=== PATIENT | male | born 1990 | race Caucasian/White ===

== ENCOUNTER 2024-06-29 09:25 | Emergency (ER) | payer BC, SELFPAY ==
[2024-06-29 09:38] VITALS: BP 124/93
--- NOTE | 2024-06-29 10:32 | ED.GENMED ---
History of Present Illness
General
Chief Complaint: Skin Problem
Time Seen by Provider: 06/29/24 10:04
History of Present Illness
History of Present Illness:
Patient is a 34-year-old man is otherwise healthy presenting to the emergency department with a rash. Patient states that 5 days ago he visited daycare for his 3-month-old son. 3 days ago he developed generalized fatigue and overall drowsiness. 2
days ago he developed a rash to his hands and that spread to his mouth and feet. He states that they are painful as well as itchy. He thought that it was allergies so he took Indira as well as Advil. No new detergents food medications. He is
not allergic to anything. His son has otherwise been healthy. It is not a burning sensation. He is only sexually active with his . He denies any fevers chills neck pain numbness tingling or weakness. He has been tolerating p.o. No changes
in his voice. He does note that he shaved yesterday and noticed some yellow crusting around the lesions around his mouth
Phy Exam
Physical Exam
Physical Exam:
GENERAL: in no acute distress
HEENT: normocephalic, extraocular movements intact, moist oral mucosa
NECK: normal inspection
RESPIRATORY: no respiratory distress, clear to auscultation bilaterally
CARDIOVASCULAR: regular rate and rhythm
ABDOMEN/: soft, non-distended, non-tender to palpation, no rebound or guarding
EXTREMITIES: non-tender, no edema/swelling
NEUROLOGIC: awake and alert, moves all extremities
SKIN: warm, bilateral hands tongue and perioral rash erythematous papular vesicle lesion with surrounding erythema, no areas of necrosis, no desquamation, some yellow crusting around perioral lesions
Course
Vital Signs
Initial and Last Documented VS:
Initial Vital Signs
Temp Pulse Resp BP Pulse Ox
98.6 F 81 18 124/93 96
06/29/24 09:38 06/29/24 09:38 06/29/24 09:38 06/29/24 09:38 06/29/24 09:38
Last Documented Vital Signs
Temp Pulse Resp BP Pulse Ox
98.6 F 81 18 124/93 98
06/29/24 09:38 06/29/24 09:38 06/29/24 09:38 06/29/24 09:38 06/29/24 10:29
MDM/Problems Addressed
Differential Diagnosis Includes:
Patient is a 34-year-old man who is otherwise healthy presenting to the emergency department with a rash to his hands feet and mouth. He also has some yellow crusting around mouth. He is overall well-appearing here without any temperature and any
meningismal signs. Rash is consistent with [id number]-rak-mouth with associated impetigo. History and exam not consistent with syphilis herpes shingles erythema multiforme or SJS. I will start him on topical mupirocin as well as a mouthwash. I
did discuss with patient about the possibility of the impetigo worsening and the need for oral antibiotics. Patient does not have good follow-up care so will give antibiotics in case it worsens. Patient and aware of when to use it. Strict
return precautions given. Will discharge at this time.
*Critical Care Note
Total Time (30-74mins, 75-104mins- exclusive of procedures): Not Applicable
ED Attending Note
-
Portions of this chart may have been created with voice recognition software.� Occasional wrong word or��sound alike� substitutions may have occurred due to the inherent limitations of voice recognition software.
Discharge Plan
Departure
Patient Disposition: Home (Routine Discharge)
Date of Disposition: 06/29/24
Time of Disposition: 10:22
Patient with high blood pressure during this ER visit?: No
Discharge Problem:
Hand, foot and mouth disease (HFMD), Impetigo
Instructions: Hand, foot, and mouth disease and herpangina, Impetigo ED
Prescriptions:
New
mupirocin 2 % ointment
1 applic topical TID Qty: 15 0RF
lidocaine HCl [Lidocaine Viscous] 2 % solution
1 applic mucous membrane TID PRN (Reason: Pain) Qty: 100 0RF
Rx Instructions:
swish and spit
cephalexin 500 mg capsule
500 mg PO QID 5 Days Qty: 20 0RF
Activity Restrictions/Additional Instructions:
You were seen in the Emergency Department today for a rash. While you were here we prescribed you topical antibiotics. I did prescribe you oral antibiotics. Please only take it if you notice a rash on your face is becoming more red, you notice
more drainage and or you develop fevers.
We would like for you to follow up with your primary care physician for further evaluation. If you experience fever, worsening of your symptoms, or develop any other new or concerning symptoms, please return to the Emergency Department immediately.
Please see the attached sheet for additional information.
Interventions
Interventions:
*Risk Screen - Suicide Last Done: 06/29/24 09:38
*General Assessment Last Done: 06/29/24 09:38
*Neglect/Abuse Screening Last Done: 06/29/24 09:38
ED- Fall Risk Assessment Last Done: 06/29/24 10:29
*ED COVID-19 Vaccine History Last Done: 06/29/24 10:29
ED- Cardiac Assessment Last Done: 06/29/24 10:29
ED- Pulmonary Assessment Last Done: 06/29/24 10:29
ED-Skin Assessment Last Done: 06/29/24 10:29
Discharge Date and Time
Print Language: TUNISIAN
[2024-06-29 10:46] VITALS: BP 138/94
--- NOTE | 2024-06-29 10:46 | EDRN ---
Reviewed discharge instructions with patient. Verbalized understanding. Ambulated with steady gait to the lobby.
== END 2024-06-29 10:47 | disposition home or self-care (01) ==
LOC: EMR 09:25
PROVIDERS: EMERGENCY PHYSICIAN Student in an Organized Health Care Education/Training Program
DX: B08.4 Enteroviral vesicular stomatitis with exanthem (principal); L01.00 Impetigo, unspecified
CPT/HCPCS: 99283